=== PATIENT | female | born 2000 | race African-American/Black ===

== ENCOUNTER 2022-07-16 08:33 | Emergency (ER) | payer OTHER, SELFPAY ==
--- NOTE | ~2022-07-16 | XR_ITS ---
EXAMINATION: XR abdomen/kub 1V DATE: 07/16/2022 09:44 INDICATION: Right flank pain. TECHNIQUE: A supine view of the abdomen on 2 radiographs was obtained. COMPARISON: None. FINDINGS: There are no dilated loops of bowel. There is a large volume of stool in the colon. There i s no visible urolithiasis. There is plate and screw fixation of right femur. IMPRESSION: 1. No visible urolithiasis. 2. Nonobstructive bowel gas pattern. Reviewed, dictated and finalized at location A. SCAN TECH
--- NOTE | ~2022-07-16 | XR_ITS ---
EXAMINATION: [id number]_CR DATE: 07/16/2022 09:44 INDICATION: Cough. Right chest wall pain. TECHNIQUE: A frontal view of the chest and 2 views on 3 radiographs of the right ribs and 2 views on 3 radiographs of the left ribs were obtained. COMPARISON: None. FINDINGS: There are airspace opacities in right lung middle lobe. No pleural effusion or pneumothorax . The heart size is normal. IMPRESSION: 1. Airspace opacities in right lung middle lobe, consistent with pneumonia. 2. No rib fracture. Reviewed, dictated and finalized at location A. PLATE INSTALLER
[2022-07-16 08:48] VITALS: BP 111/78; PULSE 101; RESP 16; TEMP 37.1; O2SAT 99
--- NOTE | 2022-07-16 09:05 | ED.ABDPAIN ---
HPI - Abdominal Pain General Chief Complaint: Abdominal Pain <Ciro Eason PA-C - Last Filed: 07/16/22 11:11> Stated Complaint: right side pain with breathing <MIKE Albright Last Filed: 07/16/22 11:11> Time Seen by Provider: 07/16/22 08:54 <Ciro Eason PA-C - Last Filed: 07/16/22 11:11> Source: patient <MIKE Albright Last Filed: 07/16/22 11:11> Mode of arrival: ambulatory <MIKE Albright Last Filed: 07/16/22 11:11> Limitations: no limitations <MIKE Albright Last Filed: 07/16/22 11:11> History of Present Illness HPI narrative: This is a 21-year-old female presents with chief complaint of right-sided pain with breathing x2 days. She states she has had viral URI symptoms for the past week. Reports some headache, congestion, cough. Denies hemoptysis. Patient states the pain is present from the lower right ribs down to the right lateral abdomen and is only present with breathing or palpation of the area. Denies any chest pain or shortness of breath. Denies urinary symptoms. Denies fevers, chills, other abdominal pain, nausea, vomiting, diarrhea. Denies leg swelling. No prior history of DVT. Does not take any estrogen-containing medication. LNMP 07/11/22 HR 101 on initial vitals but otherwise PERC negative <Ciro Eason PA-C - Last Filed: 07/16/22 11:11> Review of Systems Review of Systems: CONSTITUTIONAL: Denies fever, chills, or sweats. EYES: Denies visual changes, redness, or discharge. ENT: Endorses rhinorrhea, congestion, sore throat. 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 CARDIOVASCULAR: Endorses right lateral chest pain. Denies palpitations or edema. Denies leg swelling RESPIRATORY: Endorses cough. Endorses sputum production. Denies dyspnea or hemoptysis. GASTROINTESTINAL: Denies abdominal pain, nausea, vomiting, or diarrhea. GENITOURINARY: Denies dysuria or hematuria. SKIN: Denies rash or itching. MUSCULOSKELETAL: Denies back pain, joint pain, or myalgia. NEUROLOGIC: Endorses headache. Denies numbness, dizziness, or weakness. PSYCHIATRIC: Denies anxiety or depression. <Ciro Eason PA-C - Last Filed: 07/16/22 11:11> Exam Narrative: GENERAL: Well-appearing, well-nourished, and in no acute distress. HEAD: Normocephalic, atraumatic. EYES: PERRLA and EOMI. ENT: Nares clear, no rhinorrhea or epistaxis. Mucous membranes moist. Oropharynx without tonsillar hypertrophy exudate or other lesions. NECK: Supple. No adenopathy or masses. CHEST: Mild reproducible right-sided chest wall tenderness. No crepitus. No respiratory distress. Questionable adventitious sounds in the right lower lobe. Otherwise clear to auscultation. No wheezes rales or rhonchi HEART: Regular rate and rhythm. No murmur heard. Normal peripheral pulses. ABDOMEN: Again some mild right lateral reproducible abdominal tenderness. Mild flank pain on palpation in the right side. Soft, otherwise nontender, nondistended, normal active bowel sounds. EXTREMITIES: Normal range of motion. No edema. SKIN: Warm, dry, no rash. NEURO: Alert and oriented x3. No focal deficits. PSYCH: Normal mood and affect. <Ciro Eason PA-C - Last Filed: 07/16/22 11:11> Course MEAT SOAKER/PA Physician Supervision For this patient encounter, I reviewed the MEAT SOAKER or PA documentation, treatment plan, and medical decision making; and I had [id number] time with this patient. 21-year-old female presenting to the emergency department for evaluation of right flank pain. Chest x-ray showed evidence of a pneumonia. Patient was started on Augmentin and azithromycin. <Joshua Joseph MD - Last Filed: 07/16/22 18:05> Vital Signs Vital signs: Vital Signs Temperature 98.7 F 07/16/22 08:48 Pulse Rate 101 H 07/16/22 08:48 Respiratory Rate 16 07/16/22 08:48 Blood Pressure 111/78 07/16/22 08:48 Pulse Oximetry 99 07/16/22 08:48 Temperature 98.7 F 07/16/22 08:48 Pulse Rate 101 H 07/16/22 08:48 Respirat
[2022-07-16 09:35] LABS: Appearance Urine Clear (Clear); Bilirubin Urine Negative (Negative); Blood Urine Negative (Negative); Color Urine Yellow (Yellow); Glucose Urine UA Negative (Negative); Ketones Urine Negative (Negative); Leukocyte Esterase Ur Negative LEU/UL (Negative); Nitrate Urine Negative (Negative); Protein Urine Negative (Negative); Specific Grav Ur 1.021 (1.001-1.035); pH Urine 7.5 (5.0-9.0)
[2022-07-16 09:42] LABS: Add Urine Microscopic? NO
[2022-07-16 09:57] LABS: Influenza A QL RT-PCR Negative (Negative); Influenza B QL RT-PCR Negative (Negative); RSV RNA, RT-PCR Negative (Negative); SARS-CoV-2 RNA PCR Negative
== END 2022-07-16 10:17 | disposition home or self-care (01) ==
PROVIDERS: Physician Assistant; Emergency Provider Emergency Medicine
DX: J18.9 Pneumonia, unspecified organism (principal); Z20.822 Contact with and (suspected) exposure to COVID-19
CPT/HCPCS: 71111; 74018; 81003; 81025; 87637; 99283